=== PATIENT | female | born 1975 | race Hispanic/Latino ===

== ENCOUNTER 2017-11-30 23:04 | Inpatient (IN) | payer BC ==
[2017-11-30 23:27] VITALS: BMI 42.5
--- NOTE | 2017-11-30 23:34 | ED PDOC ---
Arrival/HPI - General Time Seen by Provider: 11/30/17 23:21 Historian: Patient - History of Present Illness Narrative History of Present Illness (Text): 11/30/17 23:23 42 y/o female, no pmh, nkda, c/o Allergies/Home Meds Allergies/Adverse Reactions: Allergies No Known Allergies Allergy (Verified 11/30/17 23:31) Home Medications: Home Meds Medication Instructions Recorded Confirmed No Known Home Med 11/30/17 11/30/17
[2017-12-01 00:37] LABS: HEMOGLOBIN 10.6 g/dL (12.0-16.0); MEAN CELL VOLUME 78.1 fl (80.0-105.0); MEAN CORPUSCULAR HEMOGLOBIN 24.1 pg (25.0-35.0); MEAN CORPUSCULAR HGB CONC 30.9 g/dl (31.0-37.0); MEAN PLATELET VOLUME 9.1 fl (7.0-11.0); RBC 4.39 10^6/uL (3.5-6.1); RED CELL DISTRIBUTION WIDTH 14.6 % (11.5-14.5); WHITE BLOOD COUNT 14.2 10^3/ul (4.5-11.0)
[2017-12-01 01:01] LABS: ALB/GLOB RATIO 1.1 (1.1-1.8); ALT/SGPT 25 U/L (7-56); AST/SGOT 23 U/L (14-36); BLOOD UREA NITROGEN 18 mg/dL (7-21); GFR AFRICAN-AMERICAN > 60; GFR NON-AFRICAN AMERICAN > 60
[2017-12-01 01:12] LABS: TROPONIN I < 0.01 ng/mL
--- NOTE | 2017-12-01 01:33 | ED PDOC ---
Arrival/HPI - General Chief Complaint: Dizziness/Lightheaded Time Seen by Provider: 11/30/17 23:21 Historian: Patient, Family (Daughter) - History of Present Illness Narrative History of Present Illness (Text): 12/01/17 01:30 A 42 year old female, with no significant past medical history , presents to the emergency department complaining of an episode of dizziness and faint-like sensation while sitting at home this evening. The patient states that this occurred suddenly with no warning. She states that she just did not feel well following the episode and began to experience generalized malaise. She states that she checked her blood pressure which was high at the time. She denies any headache currently, although her daughter states she had a headache yesterday. the patient denies fevers, chills, headache, chest pain, shortness of breath, dyspnea on exertion, cough, abdominal pain, nausea, vomiting, diarrhea, back pain, neck pain, urinary/bowel changes, or any other complaint. PMD: Dr. Nassar Time/Duration: Prior to Arrival Symptom Onset: Sudden Symptom Course: Unchanged Activities at Onset: Rest, Light Context: Home Past Medical History - Provider Review Nursing Documentation Reviewed: Yes - Infectious Disease Hx of Infectious Diseases: None - Psychiatric Hx Substance Use: No Family/Social History - Physician Review Nursing Documentation Reviewed: Yes Family/Social History: No Known Family HX Smoking Status: Never Smoked Hx Alcohol Use: No Hx Substance Use: No Allergies/Home Meds Allergies/Adverse Reactions: Allergies No Known Allergies Allergy (Verified 11/30/17 23:31) Home Medications: Home Meds Medication Instructions Recorded Confirmed No Known Home Med 11/30/17 11/30/17 Review of Systems - Physician Review All systems were reviewed & negative as marked: Yes - Review of Systems Constitutional: absent: Fevers, Night Sweats Respiratory: absent: SOB, Cough Cardiovascular: absent: Chest Pain, Other Gastrointestinal: absent: Diarrhea, Nausea, Vomiting Genitourinary Female: absent: Urine Output Changes Musculoskeletal: absent: Back Pain, Neck Pain Neurological: Headache (Yesterday.), Dizziness Physical Exam Vital Signs Reviewed: Yes Vital Signs Temp Pulse Resp BP Pulse Ox 12/01/17 01:30 95 H 17 162/78 H 100 11/30/17 23:26 98.3 F 94 H 18 187/92 H 99 Temperature: Afebrile Blood Pressure: Hypertensive Pulse: Tachycardic Respiratory Rate: Normal Appearance: Positive for: Well-Appearing, Non-Toxic, Comfortable Pain Distress: None Mental Status: Positive for: Alert and Oriented X 3 Finger Stick Blood Glucose: 114 - Systems Exam Head: Present: Atraumatic, Normocephalic Pupils: Present: PERRL Extroacular Muscles: Present: EOMI Conjunctiva: Present: Normal Mouth: Present: Moist Mucous Membranes Neck: Present: Normal Range of Motion Respiratory/Chest: Present: Clear to Auscultation, Good Air Exchange. No: Respiratory Distress, Accessory Muscle Use Cardiovascular: Present: Regular Rate and Rhythm, Normal S1, S2. No: Murmurs Abdomen: Present: Normal Bowel Sounds. No: Tenderness, Distention, Peritoneal Signs Back: Present: Normal Inspection Upper Extremity: Present: Normal Inspection. No: Cyanosis, Edema Lower Extremity: Present: Normal Inspection. No: Edema Neurological: Present: GCS=15, CN II-XII Intact, Speech Normal, Motor Func Grossly Intact, Normal Sensory Function, Normal Cerebellar Funct Skin: Present: Warm, Dry, Normal Color. No: Rashes Psychiatric: Present: Alert, Oriented x 3, Normal Insight, Normal Concentration Medical Decision Making ED Course and Treatment: 12/01/17 01:34 Impression: A 42 year old female, presents to the emergency department complaining of sudden onset dizziness and faint- like sensation this evening. Plan: -- Head CT -- EKG -- Chest X-ray -- Labs -- Reassess and disposition Progress Notes: EKG: Ordered, reviewed, and independently interpreted the EKG. Rate : 94 BPM Rhythm : NSR Interpretation : T-wave changes inferiorly. CT Head Without Intravenous Contrast Dictated and Authenticated by: Viviane Zayas MD 12/01/2017 1:44 AM Eastern Time ([place] & [place]) IMPRESSION: No evidence of an acute intracranial abnormality. 12/01/17 02:14: Chest X-ray read and interpreted by me shows no acute processes. 12/01/17 02:28: Case discussed with Dr. Nassar. Accepts patient to his service. Requests Dr. Sommer and Dr. Glaser on consult. - Lab Interpretations Lab Results: 12/01/17 00:25 12/01/17 00:25 Lab Results 12/01/17 01:18: Urine Color Yellow, Urine Appearance Clear, Urine pH 6.5, Ur Specific Epps 1.010, Urine Protein Negative, Urine Glucose (UA) Negative, Urine Ketones Negative, Urine Blood Negative, Urine Nitrate Negative, Urine Bilirubin Negative, Urine Urobilinogen 0.2, Ur Leukocyte Esterase Negative 12/01/17 00:28: POC Glucose (mg/dL) 114 H 12/01/17 00:25: WBC 14.2 H, RBC 4.39, Hgb 10.6 L, Hct 34.3 L, MCV 78.1 L, MCH 24.1 L, MCHC 30.9 L, RDW 14.6 H, Plt Count 333, MPV 9.1 12/01/17 00:25: Sodium 143, Potassium 4.2, Chloride 107, Carbon Dioxide 26, Anion Gap 14, BUN 18, Creatinine 0.8, Est GFR ( Amer) > 60, Est GFR (Non- Af Amer) > 60, Random Glucose 123 H, Calcium 9.0, Total Bilirubin 0.2, AST 23, ALT 25, Alkaline Phosphatase 63, Lactate Dehydrogenase 570, Total Creatine Kinase 185, Troponin I < 0.01, Total Protein 7.4, Albumin 4.0, Globulin 3.5, Albumin/Globulin Ratio 1.1 I have reviewed the lab results: Yes - RAD Interpretation Radiology Orders: 12/01/17 00:13 HEAD W/O CONTRAST [CT] Stat CHEST PORTABLE [RAD] Stat - EKG Interpretation Interpreted by ED Physician: Yes Type: 12 lead EKG - Scribe Statement The provider has reviewed the documentation as recorded by the Reginaiblindsay Larios Provider Scribe Attestation: All medical record entries made by the Reginaiblindsay were at my direction and personally dictated by me. I have reviewed the chart and agree that the record accurately reflects my personal performance of the history, physical exam, medical decision making, and the department course for this patient. I have also personally directed, reviewed, and agree with the discharge instructions and disposition. Disposition/Present on Arrival - Present on Arrival Any Indicators Present on Arrival: No History of DVT/PE: No History of Uncontrolled Diabetes: No Urinary Catheter: No History of Decub. Ulcer: No History Surgical Site Infection Following: None - Disposition Have Diagnosis and Disposition been Completed?: Yes Diagnosis: Near syncope, Hypertension Disposition: HOSPITALIZED Disposition Time: 02:32 Patient Plan: Observation Condition: STABLE Forms: [facility] (Pashto)
--- NOTE | 2017-12-01 01:45 | CT ---
EXAM: CT Head Without Intravenous Contrast CLINICAL HISTORY: 42 years old, female; Signs and symptoms; Dizziness; Additional info: Dizzy TECHNIQUE: Axial computed tomography images of the head/brain without intravenous contrast. All CT scans at this facility use one or more dose reduction techniques, viz.: automated exposure control; ma/kV adjustment per patient size (including targeted exams where dose is matched to indication; i.e. head); or iterative reconstruction technique. Coronal and sagittal reformatted images were created and reviewed. COMPARISON: No relevant prior studies available. FINDINGS: Brain: Unremarkable. No hemorrhage. No significant white matter disease. No edema. Ventricles: Unremarkable. No ventriculomegaly. Bones/joints: Unremarkable. No acute fracture. Soft tissues: Unremarkable. Sinuses: Unremarkable as visualized. No acute sinusitis. Mastoid air cells: Unremarkable as visualized. No mastoid effusion. IMPRESSION: No evidence of an acute intracranial abnormality.
[2017-12-01 01:47] LABS: PH,URINE 6.5 (4.7-8.0); URINE BILIRUBIN NEGATIVE (NEGATIVE); URINE BLOOD NEGATIVE (NEGATIVE); URINE GLUCOSE (UA) NEGATIVE (NEGATIVE); URINE LEUKOCYTE ESTERASE NEGATIVE Leu/uL (NEGATIVE); URINE PROTEIN NEGATIVE mg/dL (<30 mg/dL); URINE UROBILINOGEN 0.2 E.U./dL (<1 E.U./dL)
[2017-12-01 01:49] LABS: URINE APPEARANCE CLEAR (CLEAR); URINE COLOR YELLOW (YELLOW)
[2017-12-01] MEDS: Metoprolol Succinate 25 mg XL Tab PO SCH (09:54)
--- NOTE | 2017-12-01 09:57 | RAD ---
HISTORY: dizzy COMPARISON: 06/28/2013 FINDINGS: LUNGS: No active pulmonary disease. PLEURA: No significant pleural effusion identified, no pneumothorax apparent. CARDIOVASCULAR: Normal. OSSEOUS STRUCTURES: No significant abnormalities. VISUALIZED UPPER ABDOMEN: Normal. OTHER FINDINGS: None. IMPRESSION: No active disease.
[2017-12-01 10:41] LABS: TROPONIN I < 0.01 ng/mL
--- NOTE | 2017-12-01 11:10 | CON ---
DATE: NEUROLOGY CONSULTATION CHIEF COMPLAINT: Near syncope. HISTORY OF PRESENT ILLNESS: This is a 42-year-old woman with no significant past medical history who presented to the ER because of an episode of dizziness, felt like lightheaded and with a mild spinning sensation of the room, felt like faint like sensations. While she was in her home this evening, she is found to have elevated systolic and diastolic blood pressures and therefore came to the hospital for evaluation. She denied any headache, any change in sense or vision, taste, or smell. No focal weakness, paresthesias of the extremities. She did have elevated systolic and diastolic blood pressures on evaluation to the hospital. She has currently been placed on blood pressure medicine, which are being adjusted. CAT scan of the head show no acute intracranial abnormality. REVIEW OF SYSTEMS: A 14-point review of systems negative except in the HPI. FAMILY HISTORY: Noncontributory. SOCIAL HISTORY: No illicit drug use, smoking or ETOH abuse. ALLERGIES: NO KNOWN DRUG ALLERGIES. MEDICATIONS: Reviewed by nurse per reconciliation sheet. LABORATORY DATA: Sodium is 143, potassium 4.2, chloride 107, carbon dioxide 26, BUN of 18, creatinine 0.8, random glucose of 123. PHYSICAL EXAMINATION: VITAL SIGNS: Temperature is afebrile with a temperature of 98.1, pulse rate 96, blood pressure 159/83, respiratory rate of 18 and oxygen saturation 97% by room air. GENERAL: The patient is sitting up in bed, in no acute distress. HEENT: Head is atraumatic and normocephalic. PERRLA. Extraocular muscles are intact. NECK: Supple. No JVD. No adenopathy noted. LUNGS: Clear to auscultation. No adventitious sounds. HEART: S1 and S2, normal rate and rhythm. No murmurs, rubs, or gallops. ABDOMEN: Soft, nontender, and nondistended. Bowel sounds are present. EXTREMITIES: No clubbing. No cyanosis. Peripheral pulses 2+ felt bilaterally. NEUROLOGIC: The patient is alert and oriented to person, place, month, and year. Speech is fluent without any errors. Cranial nerves II through XII are intact. Motor exam: Moves all extremities equally. Toes are downgoing bilaterally. Sensory exam: Light touch, pinprick, proprioception, and vibration is intact. DTRs are 2+ throughout. Coordination: [id number] is intact. Gait is deferred for now. ASSESSMENT AND PLAN: Near syncope is most likely secondary to hypertensive urgency given a dizziness spell. At this time, we recommend: 1. Aspirin 81 mg p.o. daily. 2. Keep blood pressure between 120-130s systolic and diastolic 70-80s and adjust her blood pressure medications. 3. Salt restriction in the diet. 4. Advise daily exercises. 5. Continue current present medical management if stable from neurological standpoint. Thank you for this consult. Colin Glaser MD
[2017-12-01 12:41] LABS: HDL CHOLESTEROL 41 mg/dL (29-60)
[2017-12-01 12:53] LABS: LDL CHOLESTEROL 115 mg/dL (0-129)
--- NOTE | 2017-12-01 16:19 | CON ---
DATE: 12/01/2017 SERVICE: Cardiology. REASON FOR CONSULTATION: Feel dizzy, cardiac evaluation, uncontrolled hypertension. BRIEF CLINICAL HISTORY: This is a 42-year-old female with no significant past medical history, was playing with granddaughter, suddenly, not feeling with-it, so called her 16-year-old son who called the ambulance and brought here. Denies any chest pain, denies any shortness of breath, denies any palpitation, but not sure she was dizzy or not, but not feeling with-it and feeling different, so came here. While in the ER, the patient was found to be with blood pressure 187/92, probably new onset of hypertension. The patient has never been recently checked. PAST HISTORY: Nothing significant. SOCIAL HISTORY: Denies smoking. Denies any history of alcohol abuse. PAST SURGICAL HISTORY: Nothing significant. No history of surgery. FAMILY HISTORY: Significant for coronary artery disease. REVIEW OF SYSTEMS: As per HPI. CURRENT MEDICATIONS: None. Every now and then, patient take Motrin because of the knee pain, but otherwise, no other medication on regular basis. PHYSICAL EXAMINATION: VITAL SIGNS: Temperature afebrile, heart rate 100, blood pressure 146/92. HEENT: PERRLA. Extraocular muscles intact. NECK: Supple. No carotid bruit or thyromegaly. CHEST: Clear to auscultation. HEART: S1 and S2, regular. ABDOMEN: Soft. EXTREMITIES: Clubbing and cyanosis negative. EKG shows sinus tachycardia, heart rate of 100, normal sinus, T inversion with small Qs, II, III, aVF, septal Qs with T- inversion. IMPRESSION: Uncontrolled hypertension. No evidence of acute myocardial infarction, obesity, body mass index of 42.2 kg/m2, diabetic. Blood sugar 114. In view of above, suggest echo and start metoprolol succinate 50 mg daily, low dose of hydrochlorothiazide and monitor the blood pressure. If remaining stable, possible discharge home with stress test as an outpatient. We will get lipid profile, TSH, hemoglobin A1c. Thank you Dr. Nassar for providing us the opportunity in taking care of the patient, Shazia Hooker. We will also add one more troponin, although it is unlikely. The patient did not complain of chest pain. We will add on 5 mg of amlodipine and 12.5 of hydrochlorothiazide from today and as I mentioned, if remained stable, possible discharge home and we will schedule a stress test as outpatient. In between, we will get one more of troponin, hemoglobin A1c, lipid profile, and TSH. Discussed with the patient. We will follow with you. Carmen Sommer MD
--- NOTE | 2017-12-01 17:34 | CARD ---
APPROVED REPORT EKG Measurement Heart [id number] <Conclusion> Normal sinus rhythm T wave abnormality, nonspecific Abnormal ECG
--- NOTE | 2017-12-01 17:34 | CARD ---
APPROVED REPORT EXAM: Two-dimensional and M-mode echocardiogram with Doppler and color Doppler. INDICATION Dizziness and Vertigo 2D DIMENSIONS Left Atrium (2D)3.7 (1.6-4.0cm)IVSd1.3 (0.7-1.1cm) LVDd4.4 (3.9-5.9cm)PWd1.4 (0.7-1.1cm) LVDs2.8 (2.5-4.0cm)FS (%) 35.8 % LVEF (%)65.6 (>50%) M-Mode DIMENSIONS Aortic Root2.00 (2.2-3.7cm)Aortic Cusp Exc.1.50 (1.5-2.0cm) Aortic Valve AoV Peak Yyrnbmox012.0cm/Sridhar Peak GR.9mmHg Mitral Valve E/A ratio0.0 TDI E/Lateral E'0.0E/Medial E'0.0 Tricuspid Valve TR Peak [id number] [id number] Peak Gr.21mmHg [id number] LEFT VENTRICLE The left ventricle is normal size. There is mild concentric left ventricular hypertrophy. The left ventricular function is normal.EF-60-65% There is normal LV segmental wall motion. Transmitral Doppler flow pattern is Grade II-pseudonormal filling dynamics. No left ventricle thrombus noted on this study. There is no ventricular septal defect visualized. There is no left ventricular aneurysm. There is no mass noted in the left ventricle. RIGHT VENTRICLE The right ventricle is normal size. There is normal right ventricular wall thickness. The right ventricular systolic function is normal. ATRIA The left atrium size is normal. The right atrium size is normal. The interatrial septum is intact with no evidence for an atrial septal defect. AORTIC VALVE The aortic valve is thickened but opens well. There is trace aortic regurgitation. There is no aortic valvular stenosis. There is no aortic valvular vegetation. MITRAL VALVE The mitral valve is thickened but opens well. Mitral regurgitation is mild. There is no mitral valve stenosis. There is no evidence of mitral valve prolapse. TRICUSPID VALVE The tricuspid valve leaflets are thickened , but open well. There is trace tricuspid regurgitation.RVSP-31 mmof hg. There is no tricuspid valve stenosis. There is no tricuspid valve prolapse or vegetation. PULMONIC VALVE The pulmonary valve is normal in structure. There is trace pulmonic valvular regurgitation. There is no pulmonic valvular stenosis. GREAT VESSELS The aortic root is normal in size. The ascending aorta is normal in size. The pulmonary artery is normal. The IVC is normal in size and collapses >50% with inspiration. PERICARDIAL EFFUSION There is no pleural effusion. There is no pericardial effusion. <Conclusion> Normal chamber Size. EF-60-65%. Trace TR/AR/PI. Mild MR RVSP-31 mmof Hg.
[2017-12-02] MEDS: Metoprolol Succinate 25 mg XL Tab PO SCH (09:39)
[2017-12-02] MEDS ORDERED: Metoprolol Succinate 50 mg XL Tab PO STA (10:45)
--- NOTE | 2017-12-02 10:50 | CP.PCM.PN ---
Subjective - Date & Time of Evaluation Date of Evaluation: 12/02/17 Time of Evaluation: 08:45 - Subjective Subjective: Seen and examined by me and Dr. Hedrick Reason for consult and follow up: felt dizzy,uncontrolled hypertension,cardiac evaluation Denies chest pain, denies shortness of breath, Objective - Vital Signs/Intake and Output Vital Signs (last 24 hours): Temp Pulse Resp BP Pulse Ox 98 F 93 H 18 185/94 H 98 12/02/17 08:31 12/02/17 09:39 12/02/17 08:31 12/02/17 09:39 12/02/17 08:31 Intake and Output: 12/02/17 12/02/17 06:59 18:59 Intake Total 420 Balance 420 - Medications Medications: Current Medications Acetaminophen (Tylenol 325mg Tab) 650 mg PO Q6H PRN PRN Reason: Headache Last Admin: 12/01/17 19:59 Dose: 650 mg Amlodipine Besylate (Norvasc) 10 mg PO DAILY [facility] Last Admin: 12/02/17 09:39 Dose: 10 mg Clonidine HCl (Catapres) 0.1 mg PO Q6H PRN PRN Reason: Systolic Blood Pressure Hydrochlorothiazide (Microzide) 12.5 mg PO DAILY [facility] Last Admin: 12/02/17 09:40 Dose: 12.5 mg Metoprolol Succinate (Toprol Xl) 50 mg PO STAT STA Stop: 12/02/17 10:46 Metoprolol Succinate (Toprol Xl) 100 mg PO BRK [facility] - Constitutional Appears: No Acute Distress - Head Exam Head Exam: NORMAL INSPECTION - Eye Exam Eye Exam: Normal appearance Pupil Exam: NORMAL ACCOMODATION - ENT Exam ENT Exam: Mucous Membranes Moist, Normal Exam - Neck Exam Neck Exam: Normal Inspection - Respiratory Exam Respiratory Exam: Clear to Ausculation Bilateral, NORMAL BREATHING PATTERN - Cardiovascular Exam Cardiovascular Exam: REGULAR RHYTHM, +S1, +S2 - GI/Abdominal Exam GI & Abdominal Exam: Soft, Normal Bowel Sounds - Extremities Exam Extremities Exam: Normal Capillary Refill, Normal Inspection - Neurological Exam Neurological Exam: Alert, Awake, Oriented x3 - Psychiatric Exam Psychiatric exam: Normal Affect, Normal Mood - Skin Skin Exam: Dry, Intact, Normal Color, Warm Assessment and Plan - Assessment and Plan (Free Text) Assessment: Uncontrolled hypertension, no evidence of acute myocardial infarction, obesity BMI 42.2 kg/m2, Plan: Started on Metoprolol 50 mg daily, Echo showed normal EF with trace TR/MR , EF 60-65%. Clonidine PRN for elevated blood pressure Out patient Stress test Lifestyle modification Continue current plan of care Possible discharge home and out patient follow up Plan and treatment reviewed with Dr. Hedrick
[2017-12-02 11:40] LABS: HEMOGLOBIN 11.5 g/dL (12.0-16.0); MEAN CELL VOLUME 77.3 fl (80.0-105.0); MEAN CORPUSCULAR HEMOGLOBIN 24.4 pg (25.0-35.0); MEAN CORPUSCULAR HGB CONC 31.5 g/dl (31.0-37.0); MEAN PLATELET VOLUME 9.2 fl (7.0-11.0); RBC 4.72 10^6/uL (3.5-6.1); RED CELL DISTRIBUTION WIDTH 14.8 % (11.5-14.5); WHITE BLOOD COUNT 12.2 10^3/ul (4.5-11.0)
[2017-12-02 11:54] LABS: BLOOD UREA NITROGEN 16 mg/dL (7-21); CALCIUM 9.7 mg/dL (8.4-10.5); GFR AFRICAN-AMERICAN > 60; GFR NON-AFRICAN AMERICAN > 60
[2017-12-02 16:09] LABS: TRANSFERRIN 318.18 mg/dL (206-381)
[2017-12-02 16:41] LABS: FERRITIN 6.7 ng/mL
[2017-12-02 17:11] LABS: FOLATE 16.5 ng/mL
--- NOTE | 2017-12-03 04:38 | CON ---
DATE: PULMONARY CONSULTATION REFERRING PHYSICIAN: Dr. Nassar. REASON FOR CONSULTATION: Uncontrolled hypertension, may have sleep apnea syndrome, near syncope. HISTORY OF PRESENT ILLNESS: This is a 42-year-old obese female without any significant past medical history other than known to have a loud snoring, daytime sleepy, and tired, while sitting at home has a near syncopal episode, comes into emergency room, found to have a new onset of hypertension, seen by Cardiology, started on medication, presently, lying in the bed, slept well last night though, has a known loud snoring, daytime sleepy and tired. No chest pain. No nausea, no vomiting, no diarrhea, no leg swelling, no leg swelling. PAST MEDICAL HISTORY: There is no history of cardiopulmonary disease. FAMILY HISTORY: Positive for pulmonary hypertension, scleroderma, cardiomyopathy. SOCIAL HISTORY: Never smoker. No history of alcohol abuse. ALLERGIES: NONE KNOWN. MEDICATIONS: Presently, she is on clonidine 0.1 mg q. 6 hours p.r.n., Ecotrin 81 mg daily, hydrochlorothiazide 12.5 mg daily, Norvasc 10 mg daily, Toprol XL 100 mg daily, Tylenol p.r.n., Xanax 0.25 mg twice a day p.r.n. REVIEW OF SYSTEMS: Presently, no headache, no rhinitis. No cough. No sputum production. No chest pain. No nausea, no vomiting. No diarrhea, leg pain or leg swelling. Admit to have snoring, daytime sleepy. PHYSICAL EXAMINATION: GENERAL: She is lying in the bed, in no acute distress. VITAL SIGNS: Temp is 98, heart rate 83, respiratory rate is 20, blood pressure 136/79, pulse ox 97% on room air. Blood pressure in ER was 187/92. HEENT: Moist mucous membranes. Crowded airway. Mallampati score is IV. NECK: Supple. No JVD. LUNGS: Has fair airflow with few rhonchi. HEART: S1 and S2. ABDOMEN: Soft, nontender. No organomegaly. Extremities: There is no edema. Neurologic: Awake and alert. Follows simple commands. LABORATORY DATA: Shows hemoglobin 11.5, hematocrit 36.5, WBC 12.2, platelet count is 338. Sodium 139, potassium 3.9, chloride 101, bicarbonate 29, BUN 16, creatinine 0.7, glucose is 100, calcium is 9.7, transferrin is 318, ferritin is , alk phos is 470. Cholesterol is 189. B12 is 400. Folate is 16.5. TSH 1.65. Had a CT scan of the head done in ER shows no evidence of acute intracranial abnormality. Had echocardiogram done, which shows right ventricular systolic pressure is 31, LV ejection fraction is 60 to 65, right ventricular systolic pressure again is 31. , IMPRESSION AND PLAN: New onset of hypertension, iron-deficiency anemia, obesity, may have sleep apnea syndrome. I had a long discussion with the patient about hypertension and its correlation with sleep apnea syndrome. Patient has known history of for pulmonary hypertension in the family and sleep apnea in the family. We will keep head elevated at 45 degrees. Avoid sedation. May give 1 or 2 doses of iron intravenous and then place on p.o. iron. Follow up H and H. We will recommend attended sleep study upon discharge as outpatient. Thank you and we will follow with you. Carmen Pizano MD
[2017-12-03] MEDS ORDERED: Metoprolol Succinate 100 mg XL Tab PO SCH (08:00)
[2017-12-03 08:33] VITALS: RESP 20
--- NOTE | 2017-12-03 08:35 | HP ---
DATE: 12/01/2017 A 42-year-old femaleStephani Mccray came in to the hospital with near syncope. CHIEF COMPLAINT: Near syncope. HISTORY OF PRESENT ILLNESS: A 42-year-old female with obesity, history in the past of hypertension, noncompliant to medications. She came into the hospital, not feeling well, almost dizzy and falling. She stayed in her place and she waited, but her symptoms did not go away, feeling lightheaded, unsteady, came to the Emergency Room for evaluation. She denied any chest pain. She denied any shortness of breath. She denied any nausea, vomiting, diarrhea, burning urination, headache or any other complaint. PAST MEDICAL HISTORY: Morbid obesity, her BMI is 42.5; also, hypertension, noncompliant. 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 She is taking care of them by herself. She also is . FAMILY HISTORY: Her father had multiple medical problems, , unclear to be of cardiac etiology. Mother has extensive cardiac history. She has also cancer treated and she is doing fine. She does have hypertension. REVIEW OF SYSTEMS: She does feel fine. There is no chest pain, no short of breath. She does have sometimes knee pain, but otherwise negative. MEDICATIONS AT HOME: None. PHYSICAL EXAMINATION GENERAL: The patient is lying in bed, comfortable, no distress. VITAL SIGNS: Temperature 98.1, heart rate 67, blood pressure shot up to 187/92 and it came back to normal, the patient's respiratory rate 18, saturation 99% on room air. HEAD AND NECK: Normal. No JVD. No thyromegaly. CHEST: Clear. Good air entry. CARDIAC: First sound and second sound is normal. second sound is normal. No murmurs. ABDOMEN: Obese, nontender. EXTREMITIES: No edema. NEUROLOGIC: Normal. LABORATORY DATA: The patient had, on admission, the following laboratory studies. She had sodium 143, potassium 4.2, chloride 107, bicarbonate 26, BUN 18, creatinine 0.8, blood sugar 123, calcium 9. Liver function test is normal. Troponin is negative. The patient also had a CBC, which shows white count 14.2, hemoglobin 10.6, hematocrit 34.3, platelets 333,000. Her urinalysis was normal. The patient had also chest x-ray, which showed no active disease. CT of the head with no bleed. Electrocardiogram also was done in Emergency Room and it showed no sinus rhythm, Q-wave abnormalities, nonspecific changes. IMPRESSION AND PLAN 1. This is a 42-year-old female came in with urgent hypertension, dizziness, unsteadiness and near-syncope symptoms and had been admitted to Telemetry floor for neurocardiac consultation. 2. Urgent hypertension. The patient may need some workup including aldosterone and renin activity, echocardiography and renal artery Doppler, renal ultrasound for further evaluation. She may need 24-hour urine norepinephrine, epinephrine and other tests. At this time, we will try to consider controls of blood pressure medication, clonidine p.r.n. for systolic more than 170. Beta-blockers and Norvasc has been put in by dipping machine operator. We will continue to monitor her condition as a career development consultant. 3. The patient is morbidly obese. She may benefit from weight loss surgery, a sleeve or medications like Victoza. The patient could have metabolic derangement. She has hypertriglyceridemia, high BMI and blood pressure, metabolic syndrome , and she should be on diet, may benefit from sleeve surgery, which could help her condition in general. 4. The patient also had hypertension. Sleep apnea should be considered, especially with weight and blood pressure extremely high like 180s. We will get Pulmonary consult to evaluate for sleep apnea, probably will be done as outpatient. 5. The patient does have and expressed some anxiety, stress about kids and especially 16, 20s. and that caused her a lot of stress for her. We will consider Xanax; however, the patient does not want to try that. At this time, we will follow up clinically on her case. Continue current therapy. Carlos Nassar MD
--- NOTE | 2017-12-03 09:32 | CP.PCM.PN ---
Subjective - Date & Time of Evaluation Date of Evaluation: 12/03/17 Time of Evaluation: 08:10 - Subjective Subjective: Seen and examined by me and Dr. Hedrick Reason for consultation and follow up: Dizziness,uncontrolled hypertension, obesity, cardiac evaluation Denies chest pain, denies shortness of breath, claimed to have palpitations yesterday and feels anxious Objective - Vital Signs/Intake and Output Vital Signs (last 24 hours): Temp Pulse Resp BP Pulse Ox 98.3 F 70 20 148/84 96 12/03/17 08:32 12/03/17 08:32 12/03/17 08:32 12/03/17 09:24 12/03/17 08:32 Intake and Output: 12/03/17 12/03/17 06:59 18:59 Intake Total Balance - Medications Medications: Current Medications Acetaminophen (Tylenol 325mg Tab) 650 mg PO Q6H PRN PRN Reason: Headache Last Admin: 12/02/17 16:52 Dose: 650 mg Alprazolam (Xanax) 0.25 mg PO BID PRN; Protocol PRN Reason: Anxiety Stop: 12/09/17 11:16 Amlodipine Besylate (Norvasc) 10 mg PO DAILY [facility] Last Admin: 12/03/17 09:24 Dose: 10 mg Aspirin (Ecotrin) 81 mg PO DAILY [facility] Last Admin: 12/03/17 09:23 Dose: 81 mg Clonidine HCl (Catapres) 0.1 mg PO Q6H PRN PRN Reason: Systolic Blood Pressure Enoxaparin Sodium (Lovenox) 40 mg SC DAILY [facility] PRN Reason: Protocol Last Admin: 12/03/17 09:23 Dose: 40 mg Hydrochlorothiazide (Microzide) 12.5 mg PO DAILY [facility] Last Admin: 12/03/17 09:23 Dose: 12.5 mg Iron Sucrose 100 mg/ Sodium (Chloride) 105 mls @ 210 mls/hr IVPB DAILY [facility] Last Admin: 12/03/17 09:11 Dose: 210 mls/hr Metoprolol Succinate (Toprol Xl) 100 mg PO BRK [facility] Last Admin: 12/03/17 08:24 Dose: 100 mg - Constitutional Appears: Well, No Acute Distress - Head Exam Head Exam: NORMAL INSPECTION - Eye Exam Eye Exam: Normal appearance Pupil Exam: NORMAL ACCOMODATION - ENT Exam ENT Exam: Mucous Membranes Moist, Normal Exam - Neck Exam Neck Exam: Full ROM, Normal Inspection - Respiratory Exam Respiratory Exam: Clear to Ausculation Bilateral, NORMAL BREATHING PATTERN - Cardiovascular Exam Cardiovascular Exam: REGULAR RHYTHM, +S1, +S2 - GI/Abdominal Exam GI & Abdominal Exam: Normal Bowel Sounds - Extremities Exam Extremities Exam: Full ROM, Normal Capillary Refill, Normal Inspection - Neurological Exam Neurological Exam: Alert, Awake, Oriented x3 - Psychiatric Exam Psychiatric exam: Anxious, Normal Affect Assessment and Plan - Assessment and Plan (Free Text) Assessment: Impression: dizziness, uncontrolled hypertension, obesity, Plan: Had elevated blood pressure yesterday Increased Toprol XL to 100 mg OD Continue ASA 81 mg OD and Hydrochlorothiazide 12.5 mg daily Stable blood pressure and heart rate today For out patient Stress test 12/18/17 Diet and Lifestyle modification Will follow up Plan and treatment reviewed with Dr. Hedrick
[2017-12-03] MEDS ORDERED: Iron Sucrose 100 mg/5 ml Inj IVP SCH (10:00)
[2017-12-03] MEDS ORDERED: Enoxaparin 40 mg Syringe SC SCH (10:00)
[2017-12-03 14:25] VITALS: BP 151/86; PULSE 95; TEMP 97.8; O2SAT 99
--- NOTE | 2017-12-05 08:10 | DS ---
HISTORY OF PRESENT ILLNESS: A 42-year-old female admitted with near syncope. She was admitted to telemetry floor. Cardiac enzymes were negative. Blood pressure was very high; 184/105. Patient, when she came in, with near syncope, dizziness, not feeling well, and chest heaviness. However, patient had troponin x 3 negative, and she had blood pressure that was monitored and Norvasc 5 mg started with metoprolol succinate or Toprol-XL 50 mg, which was initially increased to 100 mg. Patient had also amlodipine 10 mg plus hydrochlorothiazide 12.5 mg once a day. PHYSICAL EXAMINATION: VITAL SIGNS: Blood pressure on discharge was 151/86, heart rate 95, temperature 97.8, respirations 20, saturation 99%. HEAD AND NECK: Normal. No JVD. No thyromegaly. CHEST: Clear. Good air entry. CARDIAC: First sound and second sound normal. ABDOMEN: Soft, obese, nontender. EXTREMITIES: No edema. NEUROLOGIC: Normal. LABORATORY DATA: Last lab shows white count 12.2, hemoglobin 11.5, hematocrit 36.5, platelets 338. Her chemistry shows sodium 139, potassium 3.9, chloride 101, bicarbonate 29, BUN 16, creatinine 0.7. Patient also has hemoglobin A1c, which is 6.2; calcium 9.7; ferritin 6.7, low-normal range. Troponin was negative and TSH was normal, 1.71. Her LDL cholesterol was 115. Patient also had a total cholesterol of 189, triglycerides 154. She also had HDL 41. The B12 level was 400 and folate 16.5. 1. Patient did have anemia, probably iron deficiency, and further workup for hypertension and anemia will be needed. Patient also had an echocardiogram which shows a concentric left ventricular hypertrophy with diastolic dysfunction or diastolic heart failure through the normal mitral flow wave and the finding consistent with hypertension and cardiac dysfunction. Patient, otherwise, has no evidence of pulmonary hypertension; her pulmonary blood pressure of 31. We will follow up on that. Patient was also seen by Neurology, Dr. Colin Glaser, and seen by Cardiology, Dr. Sommer and Dr. Hedrick. Also, pulmonary evaluation because patient does have morbid obesity; hypertension, that is kind of presented as stage II urgent hypertension, possibility of obstructive sleep apnea in relation to hypertension and presence of her morbid obesity also considered. She should do a sleep study as outpatient. 2. Patient was also advised about weight loss, diet, and exercise and maybe medication to lose weight and to keep her BMI at least below 30. Patient also discussed about the anemia, iron deficiency; need workup; she is 42. We will continue followup on that. Patient also has anxiety she does need some directions and that caused some anxiety, but, otherwise, health shaver she is stable. She has no evidence of any coronary artery disease so far. We will do stress test as outpatient. We will continue management as outpatient. DISCHARGE DIAGNOSES: Are the followin. Near syncope. 2. Chest heaviness with negative enzymes. 3. Urgent hypertension. 4. Anemia. 5. Morbid obesity. 6. Anxiety. 7. Diastolic dysfunction of the myocardium. 8. Concentric left ventricular hypertrophy. 9. Prediabetes. 10. Possibility of metabolic syndrome also. We will discuss with the patient. We will follow up as outpatient risk factors I have discussed with her and we will follow. We will continue current medications. DISCHARGE MEDICATIONS: Norvasc 10 mg, metoprolol 100 mg p.o. daily, Microzide 12.5 mg p.o. daily, Xanax 0.25 mg p.o. daily p.r.n. for 10 days only, taking during the day only. Patient was also advised if the blood pressures went up high, like 160 and above, she can double up on the hydrochlorothiazide and she can take extra half of Norvasc 5 mg and she should follow up with me in the office. Carlos Nassar MD
== END 2017-12-03 14:30 | disposition home or self-care (01) | DRG 305 ==
LOC: ED 23:04 → ERH 12-01 02:24 → 3RNO 12-01 08:47 → OBSVTOIN 12-02 20:41
PROVIDERS: ADMIT Internal Medicine; ATTEND Internal Medicine
DX: I16.0 Hypertensive urgency (principal); E66.01 Morbid (severe) obesity due to excess calories; E88.81 Metabolic syndrome and other insulin resistance; Z68.41 Body mass index [BMI] 40.0-44.9, adult; R55 Syncope and collapse; F41.9 Anxiety disorder, unspecified; D50.9 Iron deficiency anemia, unspecified; Z91.14 Patient's other noncompliance with medication regimen; I10 Essential (primary) hypertension; E78.1 Pure hyperglyceridemia; Z82.49 Family history of ischemic heart disease and other diseases of the circulatory system

== ENCOUNTER 2017-12-06 22:06 | Emergency (ER) | payer BC ==
[2017-12-06 22:07] VITALS: BMI 42.5
--- NOTE | 2017-12-06 22:54 | ED PDOC ---
Arrival/HPI - General Chief Complaint: High Blood Pressure Time Seen by Provider: 12/06/17 22:46 Historian: Patient - History of Present Illness Narrative History of Present Illness (Text): 12/06/17 22:48 Shazia Kwok is a 42 year old female who presents to the ED with worry over her blood pressure and feeling 'off' throughout the day. Pt was last seen in the ED last for a similar issue and was admitted based on unmanaged hypertension. Patient reports that she has been taking prescribed BP medications as instructed since but has not taken the prescribed alprazolam .25mg for anxiety because she doesn't want to feel drowsy. Pt has monitored her blood with a wrist cuff at home but is always concerned that her pressure is out of control. Denies chest pain, shortness of breath, nausea, vomiting, diarrhea, fever, chills, syncope, or any other complaints. 12/07/17 01:06 Time/Duration: > week Symptom Onset: Gradual Symptom Course: Intermittent Quality: Unable to Describe Severity Level: 2 Activities at Onset: Rest Context: Home Past Medical History - Provider Review Nursing Documentation Reviewed: Yes - Travel History Have you recently traveled outside [place] w/in the past 3 mons?: No - Infectious Disease Hx of Infectious Diseases: None - Cardiac Hx Hypertension: Yes - Pulmonary Hx Respiratory Disorders: No - Neurological Hx Neurological Disorder: No - HEENT Hx HEENT Disorder: No - Renal Hx Renal Disorder: No - Endocrine/Metabolic Hx Endocrine Disorders: No - Hematological/Oncological Hx Blood Disorders: No - Integumentary Hx Dermatological Disorder: No - Musculoskeletal/Rheumatological Hx Musculoskeletal Disorders: No - Gastrointestinal Hx Gastrointestinal Disorders: No - Genitourinary/Gynecological Hx Genitourinary Disorders: No - Psychiatric Hx Psychophysiologic Disorder: No Hx Substance Use: No Family/Social History - Physician Review Nursing Documentation Reviewed: Yes Family/Social History: Unknown Family HX Smoking Status: Never Smoked Hx Alcohol Use: No Hx Substance Use: No Allergies/Home Meds Allergies/Adverse Reactions: Allergies No Known Allergies Allergy (Verified 11/30/17 23:31) Home Medications: Home Meds Medication Instructions Recorded Confirmed Aspirin [Adult Low Dose Aspirin EC] 1 tab PO DAILY 12/06/17 12/06/17 Review of Systems - Review of Systems Constitutional: Normal Eyes: Normal ENT: Normal Respiratory: Normal Cardiovascular: Normal Gastrointestinal: Normal Genitourinary Female: Normal Musculoskeletal: Normal Skin: Normal Neurological: Normal Endocrine: Normal Hemo/Lymphatic: Normal Psychiatric: Anxiety Physical Exam Vital Signs Reviewed: Yes Vital Signs Temp Pulse Resp BP Pulse Ox 12/07/17 01:54 78 18 129/62 96 12/07/17 00:27 98.3 F 78 18 132/80 99 12/06/17 22:37 97.8 F 63 20 127/71 97 Temperature: Afebrile Blood Pressure: Normal Pulse: Regular Respiratory Rate: Normal Appearance: Positive for: Well-Appearing, Non-Toxic, Comfortable Pain Distress: None Mental Status: Positive for: Alert and Oriented X 3 - Systems Exam Head: Present: Atraumatic, Normocephalic Pupils: Present: PERRL Extroacular Muscles: Present: EOMI Conjunctiva: Present: Normal Mouth: Present: Moist Mucous Membranes Neck: Present: Normal Range of Motion Respiratory/Chest: Present: Clear to Auscultation, Good Air Exchange. No: Respiratory Distress, Accessory Muscle Use Cardiovascular: Present: Regular Rate and Rhythm, Normal S1, S2. No: Murmurs Abdomen: Present: Normal Bowel Sounds. No: Tenderness, Distention, Peritoneal Signs Back: Present: Normal Inspection Upper Extremity: Present: Normal Inspection. No: Cyanosis, Edema Lower Extremity: Present: Normal Inspection. No: Edema Neurological: Present: GCS=15, CN II-XII Intact, Speech Normal Skin: Present: Warm, Dry, Normal Color. No: Rashes Psychiatric: Present: Alert, Oriented x 3, Normal Insight, Normal Concentration , Anxious Medical Decision Making ED Course and Treatment: 12/06/17 22:54 Impression Shazia Kwok is a 42 year old female who presents to the ED with worry over her blood pressure and not feeling well throughout the day. PE benign; pt calm until she begins talking about her blood pressure and taking Xanax Pt reports that she lost her father very suddenly to a cardiac event approximately one month ago; she did cpr on him at home until EMS arrived; father was pronounced in the ED; this event likely is the source of her anxiety and fear over her blood pressure Plan ecg Xanax .25mg STAT Labs and cardiac enzymes portable CXR assess and dispo Progress Note ECG reveals similar findings from last one 12/01/[address] and T abnormalities in various leads; Pt denies chest pain or shortness of breath awaiting lab results; called to expedite posting but unavailable Pt reports feeling more relaxed now Repeat ECG ordered-->no change from last 2 Discussed seeking grief counseling VSS and ambulated well out of the Emergency department with her daughter 12/07/17 02:21 - Lab Interpretations Lab Results: 12/07/17 00:41 03 00:41 Lab Results 12/07/17 00:42: Urine Color Yellow, Urine Appearance Sl cloudy, Urine pH 6.0, Ur Specific [place] 1.010, Urine Protein Negative, Urine Glucose (UA) Negative, Urine Ketones Negative, Urine Blood Trace-lysed H, Urine Nitrate Negative, Urine Bilirubin Negative, Urine Urobilinogen 0.2, Ur Leukocyte Esterase Negative , Urine RBC 0 - 2, Urine WBC 0 - 2, Ur Epithelial Cells 0 - 2 12/07/17 00:41: Sodium 141, Potassium 4.0, Chloride 102, Carbon Dioxide 27, Anion Gap 16, BUN 18, Creatinine 0.9, Est GFR ( Amer) > 60, Est GFR (Non- Af Amer) > 60, Random Glucose 125 H, Calcium 10.1, Total Bilirubin 0.1 L, AST 25 , ALT 26, Alkaline Phosphatase 71, Lactate Dehydrogenase 476, Total Creatine Kinase 94, Troponin I < 0.01, Total Protein 8.4 H, Albumin 4.4, Globulin 3.9, Albumin/Globulin Ratio 1.1 12/07/17 00:41: WBC 18.8 H D, RBC 4.88, Hgb 11.8 L, Hct 37.5, MCV 76.8 L, MCH 24.2 L, MCHC 31.5, RDW 14.6 H, Plt Count 378, MPV 9.7 I have reviewed the lab results: Yes - EKG Interpretation Interpreted by ED Physician: Yes (ST&T wave abnormalities; sinus rhythm ) Comparison: Similar to previous EKG - Medication Orders Current Medication Orders: Discontinued Medications Alprazolam (Xanax) 0.25 mg PO STAT STA PRN Reason: Protocol Stop: 12/06/17 22:47 Last Admin: 12/06/17 23:48 Dose: 0.25 mg Disposition/Present on Arrival - Present on Arrival Any Indicators Present on Arrival: Yes History of DVT/PE: No History of Uncontrolled Diabetes: No Urinary Catheter: No History of Decub. Ulcer: No History Surgical Site Infection Following: None - Disposition Have Diagnosis and Disposition been Completed?: Yes Diagnosis: Anxiety Disposition: HOME/ ROUTINE Disposition Time: 01:55 Patient Plan: Discharge Condition: GOOD Discharge Instructions (ExitCare): Anxiety, Adult (DC) Additional Instructions: Dear Shazia, Please continue taking the blood pressure medication that you have been instructed to take. If you feel that you are feeling anxious, take your Xanax to assist you until; the anxiety passes. If you are concerned about worsening symptoms in the next 12-24 hours, return to the emergency department. We advise that you follow up in the next day or two with your Primary doctor and diagnostic sales specialist as previously recommended. Considering the recent loss of your loved one, it would help you considerably to receive some grief counseling. Please ask your doctor about services available to you. All the best in your recovery Referrals: Carlos Nassar MD [Primary Care Provider] - Follow up with primary Forms: [employer] ([place])
[2017-12-07 00:27] VITALS: PULSE 78; RESP 18; TEMP 98.3
[2017-12-07 01:06] LABS: HEMOGLOBIN 11.8 g/dL (12.0-16.0); MEAN CELL VOLUME 76.8 fl (80.0-105.0); MEAN CORPUSCULAR HEMOGLOBIN 24.2 pg (25.0-35.0); MEAN CORPUSCULAR HGB CONC 31.5 g/dl (31.0-37.0); MEAN PLATELET VOLUME 9.7 fl (7.0-11.0); RBC 4.88 10^6/uL (3.5-6.1); RED CELL DISTRIBUTION WIDTH 14.6 % (11.5-14.5); WHITE BLOOD COUNT 18.8 10^3/ul (4.5-11.0)
[2017-12-07 01:19] LABS: ALB/GLOB RATIO 1.1 (1.1-1.8); ALBUMIN 4.4 g/dL (3.0-4.8); ALT/SGPT 26 U/L (7-56); AST/SGOT 25 U/L (14-36); BLOOD UREA NITROGEN 18 mg/dL (7-21); CALCIUM 10.1 mg/dL (8.4-10.5); GFR AFRICAN-AMERICAN > 60; GFR NON-AFRICAN AMERICAN > 60
[2017-12-07 01:30] LABS: TROPONIN I < 0.01 ng/mL
[2017-12-07 01:55] VITALS: BP 129/62; O2SAT 96
[2017-12-07 02:20] LABS: URINE BILIRUBIN NEGATIVE (NEGATIVE); URINE BLOOD TRACE-LYSED (NEGATIVE); URINE GLUCOSE (UA) NEGATIVE (NEGATIVE); URINE LEUKOCYTE ESTERASE NEGATIVE Leu/uL (NEGATIVE); URINE PROTEIN NEGATIVE mg/dL (<30 mg/dL); URINE UROBILINOGEN 0.2 E.U./dL (<1 E.U./dL)
[2017-12-07 02:21] LABS: URINE APPEARANCE SL CLOUDY (CLEAR); URINE COLOR YELLOW (YELLOW)
[2017-12-07 02:27] LABS: URINE EPITHELIAL CELLS 0 - 2 /hpf (0-5); URINE RBC 0 - 2 /hpf (0-2); URINE WBC 0 - 2 /hpf (0-6)
--- NOTE | 2017-12-07 11:29 | CARD ---
APPROVED REPORT EKG Measurement Heart [id number] <Conclusion> Sinus rhythm with occasional premature ventricular complexes STTW changes c/w ischemia, new
--- NOTE | 2017-12-07 11:30 | CARD ---
APPROVED REPORT EKG Measurement Heart [id number] <Conclusion> Normal sinus rhythm STTW changes c/w ischemia No change c/w with earlier ECG
== END 2017-12-07 02:37 | disposition home or self-care (01) ==
LOC: ED 22:06
DX: F41.9 Anxiety disorder, unspecified (principal); I10 Essential (primary) hypertension

== ENCOUNTER 2018-08-09 15:39 | Emergency (ER) | payer BC ==
[2018-08-09 16:04] VITALS: BP 145/80; BMI 40.2
--- NOTE | 2018-08-09 16:13 | ED PDOC ---
Arrival/HPI - General Chief Complaint: Trauma Historian: Patient - History of Present Illness Narrative History of Present Illness (Text): 08/09/18 16:10 43yo female with pmhx of hypertension present with complaint of head pressure s/p trauma at 1400. States she slipped while walking her dog and fell hitting the back of her head on the floor. States she came to ED for evaluation. Denies LOC, nausea, vomiting, focal weakness, dizziness, visual changes, any other complaint. Past Medical History - Provider Review Nursing Documentation Reviewed: Yes - Infectious Disease Hx of Infectious Diseases: None - Cardiac Hx Cardiac Disorders: Yes Hx Hypertension: Yes - Pulmonary Hx Respiratory Disorders: No - Neurological Hx Neurological Disorder: No - HEENT Hx HEENT Disorder: No - Renal Hx Renal Disorder: No - Endocrine/Metabolic Hx Endocrine Disorders: No - Hematological/Oncological Hx Blood Disorders: No - Integumentary Hx Dermatological Disorder: No - Musculoskeletal/Rheumatological Hx Musculoskeletal Disorders: No - Gastrointestinal Hx Gastrointestinal Disorders: No - Genitourinary/Gynecological Hx Genitourinary Disorders: No - Psychiatric Hx Psychophysiologic Disorder: No Hx Substance Use: No Family/Social History - Physician Review Nursing Documentation Reviewed: Yes Family/Social History: Unknown Family HX Smoking Status: Never Smoked Hx Alcohol Use: No Hx Substance Use: No Allergies/Home Meds Allergies/Adverse Reactions: Allergies No Known Allergies Allergy (Verified 08/09/18 16:07) Review of Systems - Physician Review All systems were reviewed & negative as marked: Yes - Review of Systems Constitutional: Normal Eyes: Normal ENT: Normal Respiratory: Normal Cardiovascular: Normal Gastrointestinal: Normal Genitourinary Female: Normal Musculoskeletal: Normal Skin: Normal Neurological: Headache Endocrine: Normal Hemo/Lymphatic: Normal Psychiatric: Normal Physical Exam Vital Signs Reviewed: Yes Vital Signs Temp Pulse Resp BP Pulse Ox 08/09/18 16:04 98.1 F 87 18 145/80 100 Temperature: Afebrile Blood Pressure: Normal Pulse: Regular Respiratory Rate: Normal Appearance: Positive for: Well-Appearing, Non-Toxic, Comfortable Pain Distress: None Mental Status: Positive for: Alert and Oriented X 3 - Systems Exam Head: Present: Atraumatic, Normocephalic Pupils: Present: PERRL Extroacular Muscles: Present: EOMI Conjunctiva: Present: Normal Mouth: Present: Moist Mucous Membranes Neck: Present: Normal Range of Motion Respiratory/Chest: Present: Clear to Auscultation, Good Air Exchange. No: Respiratory Distress, Accessory Muscle Use Cardiovascular: Present: Regular Rate and Rhythm, Normal S1, S2. No: Murmurs Abdomen: No: Tenderness, Distention, Peritoneal Signs Back: Present: Normal Inspection Upper Extremity: Present: Normal Inspection. No: Cyanosis, Edema Lower Extremity: Present: Normal Inspection. No: Edema Neurological: Present: GCS=15, CN II-XII Intact, Speech Normal, Motor Func Grossly Intact, Normal Sensory Function, Normal Cerebellar Funct, Norm Deep Tendon Reflexes, Gait Normal, Memory Normal, Normal 2Pt Descrimination, Other (No focal neurological deficit) Skin: Present: Warm, Dry, Normal Color. No: Rashes Psychiatric: Present: Alert, Oriented x 3, Normal Insight, Normal Concentration Medical Decision Making ED Course and Treatment: 08/09/18 17:47 PT present to ED for stated history. She was neurologically intact and in no distress. She was advised of the risk of cancer from the radiation, but she insisted on getting head CT. States she will have peace of mind if she gets one. Head CT Tylenol Head CT- No acute finding Result was DW the pt and she was referred to her PMD. - RAD Interpretation Radiology Orders: 08/09/18 16:09 HEAD W/O CONTRAST [CT] Stat Disposition/Present on Arrival - Present on Arrival Any Indicators Present on Arrival: No History of DVT/PE: No History of Uncontrolled Diabetes: No Urinary Catheter: No History of Decub. Ulcer: No History Surgical Site Infection Following: None - Disposition Have Diagnosis and Disposition been Completed?: Yes Diagnosis: Head injury Disposition: HOME/ ROUTINE Disposition Time: 17:35 Patient Plan: Discharge Condition: STABLE Discharge Instructions (ExitCare): Minor Head Injury Additional Instructions: Follow up with your Doctor Return to ED for any new or worsening symptoms Referrals: Yoanna Escobar MD [Medical Doctor] - Follow up with primary Forms: [employer] (Citizen [place])
--- NOTE | 2018-08-09 17:22 | CT ---
Date of service: 08/09/2018 PROCEDURE: CT HEAD WITHOUT CONTRAST. HISTORY: S/P head injury COMPARISON: Noncontrast head CT performed 12/01/17 TECHNIQUE: Axial computed tomography images were obtained through the head/brain without intravenous contrast. Radiation dose: Total exam DLP = 819.29 mGy-cm. This CT exam was performed using one or more of the following dose reduction techniques: Automated exposure control, adjustment of the mA and/or kV according to patient size, and/or use of iterative reconstruction technique. FINDINGS: HEMORRHAGE: No intracranial hemorrhage. BRAIN: No mass effect or edema. Leggett-white matter differentiation appears intact. Please note that MRI with diffusion imaging is more sensitive in the detection of acute ischemic event. VENTRICLES: No hydrocephalus. CALVARIUM: Unremarkable. PARANASAL SINUSES: Unremarkable as visualized. No significant inflammatory changes. MASTOID AIR CELLS: Unremarkable as visualized. No inflammatory changes. OTHER FINDINGS: None. IMPRESSION: No acute intracranial pathology identified.
[2018-08-09 17:38] VITALS: PULSE 89; RESP 19; TEMP 98.5; O2SAT 98
== END 2018-08-09 17:38 | disposition home or self-care (01) ==
LOC: ED 15:39
DX: S09.90XA Unspecified injury of head, initial encounter (principal); W01.0XXA Fall on same level from slipping, tripping and stumbling without subsequent striking against object, initial encounter; Y93.K1 Activity, walking an animal; I10 Essential (primary) hypertension